=== PATIENT | female | born 1990 | race Asian ===

== ENCOUNTER → 2016-11-26 | Outpatient (CLI) | payer BC ==
[~2016-11-26] MED LIST: ETHI1TAB PO; LEVO1TAB29 PO
== END | disposition home or self-care (01) ==
LOC: STAR 09:55
PROVIDERS: ATTEND Orthopaedic Surgery
DX: Z02.9 Encounter for administrative examinations, unspecified (principal)

== ENCOUNTER 2016-12-03 11:12 | Day surgery (SDC) | payer BC ==
[~2016-12-03] VITALS: Ht 157.5 cm; Wt 50.4 kg
[~2016-12-03 11:12] MED LIST changes: +BUPIVACAINE/PF 0.5% ONE; +BUPIVACAINE/PF-EPI 0.25% 1:200K ONE; +FENTANYL PF 250 MCG/5ML ONE; +LIDOCAINE 1%-EPI 1:100K, 50ML ONE; +MIDAZOLAM 1 MG/ML, 2ML ONE
[2016-12-03] MEDS ORDERED: LACTATED RINGERS 1,000 ML IV SCH (11:48)
[2016-12-03 11:49] VITALS: BP 105/66
[2016-12-03 12:24] LABS: HCG UR OBC PASS
[2016-12-03] MEDS ORDERED: LIDOCAINE 1%-EPI 1:100K, 50ML INFIL ONE (13:15)
[2016-12-03] MEDS ORDERED: BUPIVACAINE/PF-EPI 0.25% 1:200K INFIL ONE (13:16)
[2016-12-03] MEDS ORDERED: PROPOFOL 10 MG/ML, 50ML ONE (16:02)
[2016-12-03] MEDS ORDERED: KETOROLAC 30 MG/1 ML ONE (16:02)
[2016-12-03] MEDS ORDERED: EPHEDRINE 50 MG/ML, 1ML ONE (16:02)
[2016-12-03] MEDS ORDERED: CEFAZOLIN 1,000 MG ONE (16:02)
[2016-12-03] MEDS ORDERED: ONDANSETRON 2MG/ML, 2ML ONE (16:02)
[2016-12-03] MEDS ORDERED: PROPOFOL 10 MG/ML, 20ML ONE (16:02)
== END 2016-12-03 16:20 | disposition home or self-care (01) ==
LOC: OUT 11:12
PROVIDERS: ATTEND Orthopaedic Surgery
DX: S83.281A Other tear of lateral meniscus, current injury, right knee, initial encounter (principal); M65.861 Other synovitis and tenosynovitis, right lower leg; S82.111A Displaced fracture of right tibial spine, initial encounter for closed fracture; S83.511A Sprain of anterior cruciate ligament of right knee, initial encounter; Y93.23 Activity, snow (alpine) (downhill) skiing, snowboarding, sledding, tobogganing and snow tubing; Y93.9 Activity, unspecified; Y92.9 Unspecified place or not applicable; Y99.9 Unspecified external cause status
CPT/HCPCS: 29851; 29876; 29881; 29888; 81025; J0690; J1885; J2250; J2405; J2704; J3010; J3490; J7120